=== PATIENT | female | born 1955 | race Caucasian/White ===

== ENCOUNTER → 2018-01-06 | Outpatient (CLI) | payer BC ==
[2018-01-06 16:02] LABS: Basophils # (auto) 0.1 uL; Basophils % (auto) 0.8 % (0.0-2.0); Eosinophils # (auto) 0.1 uL; Eosinophils % (auto) 1.1 % (0.0-7.0); Hematocrit 47.6 % (36.0-46.0); Hemoglobin 16.1 g/dL (12.2-16.2); Lymphocytes # (auto) 2.1 uL; Lymphocytes % (auto) 28.4 % (10.0-50.0); Mean Corpuscular Hemoglobin 30.9 pg (28.0-32.0); Mean Corpuscular Hgb Conc. 33.8 g/dL (32.0-36.0); Mean Corpuscular Volume 91.4 fL (80.0-100.0); Monocytes # (auto) 0.4 uL; Monocytes % (auto) 5.9 % (0.0-12.0); Neutrophils # (auto) 4.6 uL; Neutrophils % (auto) 63.8 % (37.0-80.0); Nucleated Red Blood Cells % 0.6 %; Platelet Count (auto) 272 10^3/uL (140-450); Red Blood Cells 5.21 10^6/uL (4.0-5.20); Red Cell Distribution Width 13.9 % (11.8-14.3); White Blood Cell 7.3 10^3/uL (4.4-10.8)
[2018-01-06 16:14] LABS: Albumin 4.3 g/dL (3.4-5.0); BUN/Creatinine Ratio 17.3; Bilirubin, Direct 0.1 mg/dL (0-0.2); Bilirubin, Total 0.5 mg/dL (0.2-1.0); Calcium 9.8 mg/dL (8.5-10.1); Potassium 4.3 mmol/L (3.5-5.1)
== END | disposition home or self-care (01) ==
LOC: LAB 11:11
PROVIDERS: ATTEND Internal Medicine Cardiovascular Disease
DX: E78.00 Pure hypercholesterolemia, unspecified (principal); D64.9 Anemia, unspecified; E11.9 Type 2 diabetes mellitus without complications; E03.9 Hypothyroidism, unspecified; E55.9 Vitamin D deficiency, unspecified; K74.1 Hepatic sclerosis; I10 Essential (primary) hypertension
CPT/HCPCS: 36415; 80048; 80061; 80076; 82306; 83036; 84155; 84165; 84443; 85025

== ENCOUNTER → 2018-01-27 | Outpatient (CLI) | payer BC | END | disposition home or self-care (01) | LOC: Rad HDHVI 08:04 | PROVIDERS: ATTEND Internal Medicine Cardiovascular Disease | DX: E11.9 Type 2 diabetes mellitus without complications (principal); I26.99 Other pulmonary embolism without acute cor pulmonale; I82.409 Acute embolism and thrombosis of unspecified deep veins of unspecified lower extremity; E78.00 Pure hypercholesterolemia, unspecified | CPT/HCPCS: 93306 ==

== ENCOUNTER → 2018-02-17 | Outpatient (CLI) | payer BC ==
[~2018-02-17] VITALS: Ht 30.5 cm; Wt 0.5 kg
[~2018-02-17] MED LIST: ADENOSINE 70 MG in GIVE UN-DILUTED 0 ML IV ONE; ADENOSINE 90 MG/30 ML INJ IV ONE; IOHEXOL 350 MG/ML 100ML IJ ONE
[2018-02-17 09:26] VITALS: BP 121/84
[2018-02-17 10:00] VITALS: BP 105/65
== END | disposition home or self-care (01) ==
LOC: Rad HDHVI 09:18
PROVIDERS: ATTEND Internal Medicine Cardiovascular Disease
DX: I70.0 Atherosclerosis of aorta (principal); K57.30 Diverticulosis of large intestine without perforation or abscess without bleeding; K80.20 Calculus of gallbladder without cholecystitis without obstruction; N28.1 Cyst of kidney, acquired; I26.99 Other pulmonary embolism without acute cor pulmonale; E70.0 Classical phenylketonuria; J44.9 Chronic obstructive pulmonary disease, unspecified; I82.409 Acute embolism and thrombosis of unspecified deep veins of unspecified lower extremity; D68.59 Other primary thrombophilia; E11.9 Type 2 diabetes mellitus without complications; Z79.4 Long term (current) use of insulin
CPT/HCPCS: 75635; 78452; 82565; 93005; 96374; 96375; A9500; G0463; J0153; Q9967

== ENCOUNTER → 2018-03-19 | Outpatient (CLI) | payer BC ==
[~2018-03-19] MED LIST changes: -ADENOSINE 70 MG in GIVE UN-DILUTED 0 ML IV ONE; -ADENOSINE 90 MG/30 ML INJ IV ONE; -IOHEXOL 350 MG/ML 100ML IJ ONE; +RIVA10TA PO
[2018-03-19 09:50] VITALS: BP 102/75
[2018-03-19 10:20] VITALS: BP 111/73
[2018-03-19 11:51] LABS: Basophils # (auto) 0.1 uL; Basophils % (auto) 0.8 % (0.0-2.0); Eosinophils # (auto) 0.2 uL; Eosinophils % (auto) 2.7 % (0.0-7.0); Hematocrit 47.2 % (36.0-46.0); Hemoglobin 15.9 g/dL (12.2-16.2); Lymphocytes # (auto) 1.8 uL; Lymphocytes % (auto) 25.5 % (10.0-50.0); Mean Corpuscular Hemoglobin 30.1 pg (28.0-32.0); Mean Corpuscular Hgb Conc. 33.7 g/dL (32.0-36.0); Mean Corpuscular Volume 89.3 fL (80.0-100.0); Monocytes # (auto) 0.5 uL; Monocytes % (auto) 7.2 % (0.0-12.0); Neutrophils # (auto) 4.6 uL; Neutrophils % (auto) 63.8 % (37.0-80.0); Nucleated Red Blood Cells % 0.5 %; Platelet Count (auto) 235 10^3/uL (140-450); Red Blood Cells 5.28 10^6/uL (4.0-5.20); Red Cell Distribution Width 13.1 % (11.8-14.3); White Blood Cell 7.2 10^3/uL (4.4-10.8)
[2018-03-19 12:03] LABS: Partial Thromboplastin Time 28.5 sec (23.78-33.04); Prothrombin Time 10.7 sec (9.27-12.13)
[2018-03-19 12:10] LABS: BUN/Creatinine Ratio 17.6; Calcium 8.9 mg/dL (8.5-10.1); Potassium 4.3 mmol/L (3.5-5.1)
== END | disposition home or self-care (01) ==
LOC: Rad HDHVI 09:40
PROVIDERS: ATTEND Internal Medicine Cardiovascular Disease
DX: Z01.818 Encounter for other preprocedural examination (principal); E11.9 Type 2 diabetes mellitus without complications; J44.9 Chronic obstructive pulmonary disease, unspecified; E03.9 Hypothyroidism, unspecified; E78.00 Pure hypercholesterolemia, unspecified; I10 Essential (primary) hypertension; Z79.4 Long term (current) use of insulin
CPT/HCPCS: 36415; 71046; 80048; 85025; 85610; 85730; 93005; G0463

== ENCOUNTER 2018-03-25 09:52 | Day surgery (SDC) | payer BC ==
[~2018-03-25] VITALS: Ht 162.6 cm; Wt 84.0 kg
[2018-03-25] MEDS ORDERED: ANGIOMAX 250 MG VIAL IV ONE (10:51)
[2018-03-25] MEDS ORDERED: fentaNYL CITRATE 100 MCG/2 ML VL ONE (10:51)
[2018-03-25] MEDS ORDERED: SODIUM CHL 0.9% 0 ML ONE (10:51)
[2018-03-25] MEDS ORDERED: MIDAZOLAM HCL 1MG/1ML-2 ML VIAL ONE (10:51)
[2018-03-25] MEDS ORDERED: SODIUM CHLORIDE 0.9% 1,000 ML IV SCH (12:58)
== END 2018-03-25 13:40 | disposition home or self-care (01) ==
LOC: CATH 09:52
PROVIDERS: ATTEND Internal Medicine Cardiovascular Disease
DX: R94.39 Abnormal result of other cardiovascular function study (principal); I10 Essential (primary) hypertension; J44.9 Chronic obstructive pulmonary disease, unspecified; I82.409 Acute embolism and thrombosis of unspecified deep veins of unspecified lower extremity; E66.9 Obesity, unspecified; Z68.31 Body mass index [BMI] 31.0-31.9, adult; Z88.5 Allergy status to narcotic agent; Z88.0 Allergy status to penicillin; Z79.2 Long term (current) use of antibiotics
CPT/HCPCS: 93458; C1760; C1894; J2250; J3010; J7030; 99152

== ENCOUNTER → 2019-02-04 | Outpatient (CLI) | payer BC ==
[~2019-02-04] MED LIST changes: +IOHEXOL 350 MG/ML 100ML IJ ONE
[2019-02-04 10:50] VITALS: BP 115/68
[2019-02-04 12:15] VITALS: BP 120/67
--- NOTE | 2019-02-04 12:20 | NUR ---
LABS RETURNED. CREATININE 0.89. NOTIFIED [place] VERBALLY.
--- NOTE | 2019-02-04 12:38 | NUR ---
CT SCAN COMPLETED AND TOLERATED WELL. VS WNL. IV SITE TO LEFT AC DCD AND SITE BENIGN POST INFUSION. Discharge Instructions See e-MAR for any mediations given with this visit. Patient education given on disease process. Patient verbalized understanding. Previous labs reviewed. Patient discharged in stable condition with after care instructions.
--- NOTE | 2019-02-04 12:45 | NUR ---
SAMPLES OF XARELTO GIVEN TO PATIENT.
== END | disposition home or self-care (01) ==
LOC: Rad HDHVI 10:19
PROVIDERS: ATTEND Internal Medicine Cardiovascular Disease
DX: K76.0 Fatty (change of) liver, not elsewhere classified (principal); N28.1 Cyst of kidney, acquired; R94.4 Abnormal results of kidney function studies; R91.8 Other nonspecific abnormal finding of lung field; J43.9 Emphysema, unspecified; I20.0 Unstable angina; I48.0 Paroxysmal atrial fibrillation
CPT/HCPCS: 36415; 71260; 82565; 93306; G0463; Q9967

== ENCOUNTER → 2019-03-11 | Outpatient (CLI) | payer BC ==
[~2019-03-11] VITALS: Ht 162.6 cm; Wt 88.9 kg
[~2019-03-11] MED LIST changes: +ADENOSINE 75 MG in GIVE UN-DILUTED 0 ML IV ONE; +ADENOSINE 90 MG/30 ML INJ IV ONE; -IOHEXOL 350 MG/ML 100ML IJ ONE
[2019-03-11] MEDS: ALBUTEROL SULF 2.5 MG/0.5ML(0.5%) NEB SOLN ONE (10:54)
--- NOTE | 2019-03-11 10:55 | NUR ---
Albuterol med/neb tx given for SOB, oxygen saturation 88% on 4L N/C. Patient stated SOB improved and final oxygen saturation 91% on 4L O2.
== END | disposition home or self-care (01) ==
LOC: Rad HDHVI 08:43
PROVIDERS: ATTEND Internal Medicine Cardiovascular Disease
DX: J44.9 Chronic obstructive pulmonary disease, unspecified (principal); I25.10 Atherosclerotic heart disease of native coronary artery without angina pectoris; E78.00 Pure hypercholesterolemia, unspecified; R06.2 Wheezing; F17.200 Nicotine dependence, unspecified, uncomplicated; R00.0 Tachycardia, unspecified; R00.2 Palpitations
CPT/HCPCS: 78452; 93005; 94640; 96374; 96375; A9500; J0153; J7611

== ENCOUNTER → 2019-06-30 | Outpatient (CLI) | payer BC ==
[~2019-06-30] MED LIST changes: -ADENOSINE 75 MG in GIVE UN-DILUTED 0 ML IV ONE; -ADENOSINE 90 MG/30 ML INJ IV ONE
[2019-06-30 16:27] LABS: BUN/Creatinine Ratio 11.9; Magnesium 2.5 mg/dL (1.6-2.6); Potassium 4.7 mmol/L (3.5-5.1)
== END | disposition home or self-care (01) ==
LOC: LAB 11:12
PROVIDERS: ATTEND Internal Medicine Cardiovascular Disease
DX: M10.9 Gout, unspecified (principal); E83.40 Disorders of magnesium metabolism, unspecified; J44.9 Chronic obstructive pulmonary disease, unspecified; I10 Essential (primary) hypertension; F17.210 Nicotine dependence, cigarettes, uncomplicated
CPT/HCPCS: 36415; 80048; 83735; 84550

== ENCOUNTER 2019-07-01 14:40 | Emergency (ER) | payer BC ==
[~2019-07-01] VITALS: Ht 162.6 cm; Wt 87.5 kg
[2019-07-01 15:00] VITALS: BP 116/59
== END 2019-07-01 18:10 | disposition home or self-care (01) ==
LOC: ER 14:44
DX: B37.0 Candidal stomatitis (principal); Z88.6 Allergy status to analgesic agent; Z88.0 Allergy status to penicillin

== ENCOUNTER 2019-07-03 22:20 | Emergency (ER) | payer BC ==
[~2019-07-03] VITALS: Ht 167.6 cm; Wt 90.7 kg
[2019-07-03 23:08] LABS: Basophils # (auto) 0.1 uL; Basophils % (auto) 0.8 % (0.0-2.0); Eosinophils # (auto) 0.1 uL; Eosinophils % (auto) 1.6 % (0.0-7.0); Hematocrit 45.6 % (36.0-46.0); Hemoglobin 15.5 g/dL (12.2-16.2); Lymphocytes # (auto) 2.7 uL; Lymphocytes % (auto) 34.6 % (10.0-50.0); Mean Corpuscular Hemoglobin 30.1 pg (28.0-32.0); Mean Corpuscular Volume 88.7 fL (80.0-100.0); Monocytes # (auto) 0.7 uL; Monocytes % (auto) 8.6 % (0.0-12.0); Neutrophils # (auto) 4.3 uL; Neutrophils % (auto) 54.4 % (37.0-80.0); Platelet Count (auto) 258 10^3/uL (140-450); Red Blood Cells 5.14 10^6/uL (4.0-5.20); Red Cell Distribution Width 13.2 % (11.8-14.3); White Blood Cell 7.9 10^3/uL (4.4-10.8)
[2019-07-03 23:33] LABS: Alanine Aminotransferase 27 U/L (13-56); Albumin 3.4 g/dL (3.4-5.0); Anion Gap 11 (5-15); Aspartate Aminotransferase 19 U/L (15-37); BUN/Creatinine Ratio 12.9; Blood Urea Nitrogen 13 mg/dL (7-18); Calcium 8.7 mg/dL (8.5-10.1); Carbon Dioxide 27 mmol/L (21-32); Chloride 100 mmol/L (98-107); GFR African American 71 mL/min; GFR Non-African American 59 mL/min; Glucose 239 mg/dL (74-106); Potassium 4.1 mmol/L (3.5-5.1); Sodium 138 mmol/L (136-145)
[2019-07-03 23:49] LABS: Alkaline Phosphatase 99 U/L (45-117); Bilirubin, Total 0.4 mg/dL (0.2-1.0); Total Protein 7.2 g/dL (6.4-8.2)
[2019-07-04] MEDS ORDERED: ALBUTEROL SULF 2.5 MG/0.5ML(0.5%) NEB SOLN NEB ONE ×2 (03:45→07:15)
[2019-07-04] MEDS ORDERED: IPRATROPIUM BROM 0.5 MG/2.5ML INH SOL NEB ONE ×2 (03:45→07:15)
[2019-07-04] MEDS ORDERED: methylPREDNISolone SOD SUCC 125 MG/2 ML VL IV ONE (03:45)
[2019-07-04] MEDS ORDERED: ALBUTEROL SULF 2.5 MG/0.5ML(0.5%) NEB SOLN ONE (04:00)
[2019-07-04] MEDS ORDERED: IPRATROPIUM BROM 0.5 MG/2.5ML INH SOL ONE (04:01)
[2019-07-04] MEDS ORDERED: methylPREDNISolone SOD SUCC 125 MG/2 ML VL ONE (04:04)
[2019-07-04 05:52] LABS: Urine Bacteria FEW /hpf (None Seen); Urine Blood Negative /uL (Negative); Urine Mucus FEW (None Seen); Urine Specific Gravity 1.036 (1.001-1.035); Urine WBC 2 /hpf (0 - 5)
[2019-07-04 07:52] VITALS: BP 119/63
== END 2019-07-04 08:28 | disposition home or self-care (01) ==
LOC: EDBD 22:20 → ER 22:25
DX: J44.1 Chronic obstructive pulmonary disease with (acute) exacerbation (principal); J01.00 Acute maxillary sinusitis, unspecified; I10 Essential (primary) hypertension; Z88.6 Allergy status to analgesic agent; Z88.0 Allergy status to penicillin
CPT/HCPCS: 36415; 71045; 80053; 81001; 83880; 84484; 85025; 93005; 94640; 96374; 99284; J2930; J7611; J7644

== ENCOUNTER → 2019-09-07 | Outpatient (CLI) | payer BC ==
[~2019-09-07] MED LIST changes: +IOHEXOL 350 MG/ML 100ML IJ ONE
[2019-09-07 12:09] VITALS: BP 135/109
[2019-09-07 13:43] VITALS: BP 114/61
--- NOTE | 2019-09-07 13:43 | NUR ---
Discharge Instructions See e-MAR for any mediations given with this visit. Patient education given on disease process. Patient verbalized understanding. Previous labs reviewed. Patient discharged in stable condition with after care instructions and follow up appointment. PT HEART RATE INCREASE HAS HISTORY OF SUCK NO CHEST PAIN AND REGULAR. PT ADMITS ANXIETY AND DOESNT LIKE THE DOCTORS. ADVISED TO RELAX WHEN GOING. HAS ECHO LATER TODAY AT 1500
== END | disposition home or self-care (01) ==
LOC: Rad HDHVI 11:58
PROVIDERS: ATTEND Internal Medicine Cardiovascular Disease
DX: K80.20 Calculus of gallbladder without cholecystitis without obstruction (principal); R94.4 Abnormal results of kidney function studies; R91.8 Other nonspecific abnormal finding of lung field; R16.0 Hepatomegaly, not elsewhere classified; I74.5 Embolism and thrombosis of iliac artery; I82.409 Acute embolism and thrombosis of unspecified deep veins of unspecified lower extremity; I87.2 Venous insufficiency (chronic) (peripheral); J44.9 Chronic obstructive pulmonary disease, unspecified; I48.91 Unspecified atrial fibrillation; E11.21 Type 2 diabetes mellitus with diabetic nephropathy; I11.9 Hypertensive heart disease without heart failure; Z88.5 Allergy status to narcotic agent; Z88.0 Allergy status to penicillin; Z87.891 Personal history of nicotine dependence
CPT/HCPCS: 36415; 71260; 74177; 82565; 93306; G0463; Q9967

== ENCOUNTER → 2019-10-04 | Outpatient (CLI) | payer BC ==
[~2019-10-04] MED LIST changes: +ATOR10TA52 PO; +FLUT250M2 INH; +INSLANTI SC; -IOHEXOL 350 MG/ML 100ML IJ ONE; +IPRIH INH; +RIVA20TA PO
[2019-10-04 10:30] VITALS: BP 119/54
[2019-10-04 10:54] VITALS: BP 115/61
--- NOTE | 2019-10-04 10:54 | NUR ---
Pre-Op Discharge Summary: See e-MAR for any medications given for this visit. Pre-op orders received and carried out per MD of EKG, LABS and a prescription for chest xrays. Patient given a copy of EKG with instructions to go to [facility] out patient for further follow up care.
[2019-10-04 11:49] LABS: Basophils # (auto) 0 uL; Basophils % (auto) 0.6 % (0.0-2.0); Eosinophils # (auto) 0.1 uL; Eosinophils % (auto) 1.2 % (0.0-7.0); Hematocrit 43.2 % (36.0-46.0); Hemoglobin 14.1 g/dL (12.2-16.2); Lymphocytes # (auto) 1.4 uL; Lymphocytes % (auto) 20.4 % (10.0-50.0); Mean Corpuscular Hgb Conc. 32.6 g/dL (32.0-36.0); Monocytes # (auto) 0.4 uL; Monocytes % (auto) 5.5 % (0.0-12.0); Neutrophils # (auto) 4.8 uL; Neutrophils % (auto) 72.3 % (37.0-80.0); Platelet Count (auto) 262 10^3/uL (140-450); Red Blood Cells 4.85 10^6/uL (4.0-5.20); White Blood Cell 6.7 10^3/uL (4.4-10.8)
[2019-10-04 12:09] LABS: BUN/Creatinine Ratio 14.1; Calcium 8.9 mg/dL (8.5-10.1)
[2019-10-04 12:19] LABS: INR 1.21 (0.9-1.15); Partial Thromboplastin Time 31.3 sec (23.64-32.05)
== END | disposition home or self-care (01) ==
LOC: Rad HDHVI 10:13
PROVIDERS: ATTEND Internal Medicine Cardiovascular Disease
DX: Z01.812 Encounter for preprocedural laboratory examination (principal); I82.409 Acute embolism and thrombosis of unspecified deep veins of unspecified lower extremity; R60.9 Edema, unspecified; I87.2 Venous insufficiency (chronic) (peripheral)
CPT/HCPCS: 36415; 80048; 85025; 85610; 85730; 93005; G0463

== ENCOUNTER 2019-10-06 09:06 | Day surgery (SDC) | payer BC ==
[~2019-10-06] VITALS: Ht 162.6 cm; Wt 83.9 kg
[~2019-10-06 09:06] MED LIST changes: -RIVA10TA PO
[2019-10-06] MEDS ORDERED: LIDOCAINE 2%HCL (LOCAL ANESTH.) INJ 20ML MDV ONE (10:46)
[2019-10-06] MEDS ORDERED: IOHEXOL 350 MG/ML 100ML IJ ONE (11:13)
[2019-10-06] MEDS ORDERED: SODIUM CHL 0.9% 0 ML ONE (11:13)
[2019-10-06] MEDS ORDERED: fentaNYL CITRATE 100 MCG/2 ML VL ONE (11:13)
[2019-10-06] MEDS ORDERED: ANGIOMAX 250 MG VIAL IV ONE (11:13)
[2019-10-06] MEDS ORDERED: MIDAZOLAM HCL 1MG/1ML-2 ML VIAL ONE (11:13)
[2019-10-06] MEDS ORDERED: ONDANSETRON HCL 4 MG/2 ML VIAL IV PRN (12:15)
[2019-10-06] MEDS ORDERED: SODIUM CHL 0.9% 500 ML IV ONE (12:15)
[2019-10-06] MEDS ORDERED: ACETAMINOPHEN 500 MG TAB PO PRN (12:15)
== END 2019-10-06 14:15 | disposition home or self-care (01) ==
LOC: CATH 09:06
PROVIDERS: ATTEND Internal Medicine Cardiovascular Disease
DX: I73.89 Other specified peripheral vascular diseases (principal); I74.5 Embolism and thrombosis of iliac artery; E78.5 Hyperlipidemia, unspecified; I10 Essential (primary) hypertension; F17.210 Nicotine dependence, cigarettes, uncomplicated; J44.9 Chronic obstructive pulmonary disease, unspecified; E11.9 Type 2 diabetes mellitus without complications; Z79.4 Long term (current) use of insulin; Z79.899 Other long term (current) drug therapy; Z88.5 Allergy status to narcotic agent; Z88.0 Allergy status to penicillin
CPT/HCPCS: 36200; 75716; C1760; C1769; C1894; J1644; J2250; J3010; J7030; Q9967; 99152

== ENCOUNTER 2022-04-25 19:54 | Inpatient (IN) | payer BC, MEDICARE ==
[~2022-04-25] VITALS: Ht 172.7 cm; Wt 82.1 kg
[2022-04-25 21:15] LABS: Basophils # (auto) 0.1 10 ^3/uL (0-0.2); Basophils % (auto) 0.4 % (0.0-2.0); Eosinophils # (auto) 0 10 ^3/uL (0-0.8); Eosinophils % (auto) 0.1 % (0.0-7.0); Hematocrit 42.5 % (36.0-46.0); Hemoglobin 13.9 g/dL (12.2-16.2); Lymphocytes # (auto) 0.9 10 ^3/uL (0.4-5.4); Lymphocytes % (auto) 6.1 % (10.0-50.0); Mean Corpuscular Hemoglobin 29.1 pg (28.0-32.0); Mean Corpuscular Hgb Conc. 32.8 g/dL (32.0-36.0); Mean Corpuscular Volume 88.6 fL (80.0-100.0); Monocytes # (auto) 0.8 10 ^3/uL (0-1.3); Monocytes % (auto) 5.8 % (0.0-12.0); Neutrophils # (auto) 12.6 10 ^3/uL (1.6-8.6); Neutrophils % (auto) 87.6 % (37.0-80.0); Nucleated Red Blood Cells % 0.2 %; Red Blood Cells 4.79 10^6/uL (4.0-5.20); Red Cell Distribution Width 13.9 % (11.8-14.3); White Blood Cell 14.4 10^3/uL (4.4-10.8)
[2022-04-25] MEDS ORDERED: LABETALOL HCL 5 MG/ML 4ML SYRINGE IV ONE (21:15)
[2022-04-25 21:32] LABS: Alanine Aminotransferase 36 U/L (13-56); Albumin 3.6 g/dL (3.4-5.0); Anion Gap 8 (5-15); Aspartate Aminotransferase 18 U/L (15-37); BUN/Creatinine Ratio 25.4; Blood Alcohol < 3.0 mg/dL (0-5); Blood Urea Nitrogen 17 mg/dL (7-18); Calcium 8.8 mg/dL (8.5-10.1); Carbon Dioxide 24 mmol/L (21-32); Chloride 98 mmol/L (98-107); GFR African American 113 mL/min; GFR Non-African American 94 mL/min; Glucose 157 mg/dL (74-106); Magnesium 2.3 mg/dL (1.6-2.6); Sodium 130 mmol/L (136-145)
[2022-04-25 21:35] LABS: Alkaline Phosphatase 88 U/L (45-117); Bilirubin, Total 0.7 mg/dL (0.2-1.0); Creatine Kinase IFCC 47 U/L (26-192); Total Protein 7.8 g/dL (6.4-8.2)
[2022-04-25 22:12] LABS: Partial Thromboplastin Time 39.3 sec (23.6-33.0)
[2022-04-25] MEDS ORDERED: cefTRIAXone 1GM/50ML D5W 50 ML IV SCH (23:45)
[2022-04-25] MEDS ORDERED: DEXTROSE (50%) 50ML SYRG IV PRN (23:45)
[2022-04-25] MEDS ORDERED: ONDANSETRON HCL 4 MG/2 ML VIAL IV PRN (23:45)
[2022-04-25] MEDS ORDERED: ACETAMINOPHEN 325 MG TAB PO PRN (23:45)
[2022-04-25] MEDS ORDERED: DOCUSATE SOD 100 MG CAP PO PRN (23:45)
[2022-04-26] MEDS: SODIUM CHLORIDE 0.9% 1,000 ML IV SCH ×2 (00:22→16:25)
[2022-04-26] MEDS: ACCU-CHEK COMFORT CURVE STRIP VI SCH ×4 (07:03→22:54)
[2022-04-26] MEDS: InsuLIN REG 1unit/0.01ml Soln (100units/ml) SC SCH ×4 (07:03→22:58)
[2022-04-26 07:19] LABS: Calcium 8.6 mg/dL (8.5-10.1); Potassium 3.8 mmol/L (3.5-5.1)
[2022-04-26 07:23] LABS: BUN/Creatinine Ratio 22.9
[2022-04-26 07:29] LABS: Basophils # (auto) 0 10 ^3/uL (0-0.2); Basophils % (auto) 0.2 % (0.0-2.0); Eosinophils # (auto) 0 10 ^3/uL (0-0.8); Hematocrit 42.9 % (36.0-46.0); Hemoglobin 14.4 g/dL (12.2-16.2); Lymphocytes # (auto) 1.1 10 ^3/uL (0.4-5.4); Lymphocytes % (auto) 8.7 % (10.0-50.0); Mean Corpuscular Hemoglobin 29.4 pg (28.0-32.0); Mean Corpuscular Hgb Conc. 33.5 g/dL (32.0-36.0); Monocytes # (auto) 0.9 10 ^3/uL (0-1.3); Monocytes % (auto) 7.5 % (0.0-12.0); Neutrophils # (auto) 10.1 10 ^3/uL (1.6-8.6); Neutrophils % (auto) 83.6 % (37.0-80.0); Nucleated Red Blood Cells % 0.1 %; Red Blood Cells 4.87 10^6/uL (4.0-5.20); Red Cell Distribution Width 14.2 % (11.8-14.3); White Blood Cell 12.1 10^3/uL (4.4-10.8)
[2022-04-26 08:51] LABS: Urine Bacteria NONE SEEN /hpf (None Seen); Urine Blood Negative /uL (Negative); Urine Specific Gravity 1.029 (1.001-1.035); Urine WBC 10 /hpf (0 - 5)
[2022-04-26 09:01] LABS: Amphetamine Screen, Urine NEGATIVE (NEGATIVE); Barbiturate Scree,Urine NEGATIVE (NEGATIVE); Benzodiazephine Screen, Urine NEGATIVE (NEGATIVE); Cannabinoid Screen, Urine NEGATIVE (NEGATIVE); Cocaine Screen, Urine NEGATIVE (NEGATIVE); Opiate Scree,Urine NEGATIVE (NEGATIVE); Phencyclidine Screen, Urine NEGATIVE (NEGATIVE)
[2022-04-26 09:14] LABS: Alcohol, Urine < 3.0 mg/dL (0-10)
[2022-04-26 17:54] VITALS: BP 160/85
[2022-04-26 20:00] VITALS: BP 146/90
[2022-04-26 22:00] VITALS: BP 146/87
[2022-04-26] MEDS: CIPROFLOXACIN 400MG/200ML 200 ML IV SCH (22:44)
[2022-04-27 05:00] VITALS: BP 162/76
[2022-04-27] MEDS: ACCU-CHEK COMFORT CURVE STRIP VI SCH ×4 (06:35→23:15)
[2022-04-27] MEDS: InsuLIN REG 1unit/0.01ml Soln (100units/ml) SC SCH ×4 (06:45→23:13)
[2022-04-27] MEDS: INSULIN LANTUS (GLARGINE) 1 /0.01ml (100units/ml) SC SCH (06:46)
[2022-04-27 07:15] LABS: Potassium 3.7 mmol/L (3.5-5.1)
[2022-04-27 07:28] LABS: BUN/Creatinine Ratio 33.8; Calcium 8.6 mg/dL (8.5-10.1); Magnesium 2.6 mg/dL (1.6-2.6)
[2022-04-27 08:00] VITALS: BP 146/90
[2022-04-27 08:18] VITALS: BP 165/87
[2022-04-27] MEDS: SODIUM CHLORIDE 0.9% 1,000 ML IV SCH (09:05)
[2022-04-27] MEDS ORDERED: ATORVASTATIN CALCIUM 10 MG PO SCH (10:00)
[2022-04-27] MEDS ORDERED: ENOXAPARIN SOD 40 MG/0.4 ML SYRINGE SC SCH (10:30)
[2022-04-27] MEDS: amLODIPine BESYLATE 5 MG TAB PO SCH (12:09)
[2022-04-27] MEDS: LISINOPRIL 20 MG TAB PO SCH (12:11)
[2022-04-27] MEDS: FAMOTIDINE (10MG/ML) 2ML VL IV SCH (12:14)
[2022-04-27] MEDS: CIPROFLOXACIN 400MG/200ML 200 ML IV SCH ×2 (12:19→22:46)
[2022-04-27 13:00] VITALS: BP 170/90
[2022-04-27 16:39] VITALS: BP 144/86
[2022-04-27 22:00] VITALS: BP 140/83
[2022-04-27] MEDS ORDERED: ACETAMINOPHEN 650 MG RECT SUPP PR PRN (22:00)
[2022-04-27] MEDS ORDERED: ATORVASTATIN 20 MG TAB PO SCH (22:00)
[2022-04-28] VITALS (13 sets, daily range): BP systolic 118–138; BP diastolic 57–77
[2022-04-28] MEDS: SODIUM CHLORIDE 0.9% 1,000 ML IV SCH ×2 (01:45→17:58)
[2022-04-28] MEDS: InsuLIN REG 1unit/0.01ml Soln (100units/ml) SC SCH ×3 (07:15→17:32)
[2022-04-28] MEDS: ACCU-CHEK COMFORT CURVE STRIP VI SCH ×3 (07:16→17:32)
[2022-04-28] MEDS: INSULIN LANTUS (GLARGINE) 1 /0.01ml (100units/ml) SC SCH (07:16)
[2022-04-28] MEDS ORDERED: SODIUM PHOSPHATES 24 MEQ in SODIUM CHL 0.9% 100 ML IV ONE (09:45)
[2022-04-28] MEDS: LISINOPRIL 20 MG TAB PO SCH (10:00)
[2022-04-28] MEDS: amLODIPine BESYLATE 5 MG TAB PO SCH (10:00)
[2022-04-28] MEDS: CIPROFLOXACIN 400MG/200ML 200 ML IV SCH (10:02)
[2022-04-28] MEDS: FAMOTIDINE (10MG/ML) 2ML VL IV SCH (10:02)
[2022-04-28 10:49] LABS: INR 1.32 (0.9-1.15)
[2022-04-28] MEDS ORDERED: IOHEXOL 350 MG/ML 100ML IJ ONE (15:11)
[2022-04-28] MEDS: niMODipine 30 MG CAP PO SCH ×2 (17:37→19:35)
== END 2022-04-28 21:10 | disposition short-term general hospital (02) | DRG 871 ==
LOC: ER 19:54 → EDBD 19:54 → OVERFLOW 23:40 → WEST WING 04-26 14:18 → ICU WEST 04-28 17:17
PROVIDERS: ADMIT Hospitalist; ATTEND Hospitalist
DX: A41.9 Sepsis, unspecified organism (principal); G93.41 Metabolic encephalopathy; I60.9 Nontraumatic subarachnoid hemorrhage, unspecified; N39.0 Urinary tract infection, site not specified; F03.90 Unspecified dementia, unspecified severity, without behavioral disturbance, psychotic disturbance, mood disturbance, and anxiety; F17.210 Nicotine dependence, cigarettes, uncomplicated; E78.5 Hyperlipidemia, unspecified; S09.90XA Unspecified injury of head, initial encounter; E11.65 Type 2 diabetes mellitus with hyperglycemia; I10 Essential (primary) hypertension; Z20.822 Contact with and (suspected) exposure to COVID-19; J44.9 Chronic obstructive pulmonary disease, unspecified; Z79.82 Long term (current) use of aspirin; Z79.01 Long term (current) use of anticoagulants; Z88.5 Allergy status to narcotic agent; Z88.0 Allergy status to penicillin; Z79.4 Long term (current) use of insulin
CPT/HCPCS: 36415; 70450; 71045; 72125; 80048; 80053; 80061; 80307; 80320; 81001; 82140; 82542; 82550; 82962; 83036; 83605; 83735; 84100; 84484; 85025; 85610; 85730; 87040; 87081; 87086; 87088; 87186; 93005; 96372; 96374; G0378; J1815; J3490; J7060